=== PATIENT | female | born 1955 | race Caucasian/White ===

== ENCOUNTER 2019-05-31 23:26 | Emergency (ER) | payer MEDICARE, MEDICAID ==
[2019-05-31] MEDS ORDERED: Labetalol 100 MG/20 ML MDV IVPUSH ONE (23:40)
[2019-05-31] MEDS ORDERED: Labetalol 20 MG/4 ML Syringe ONE (23:43)
[2019-06-01] MEDS ORDERED: Sodium Chloride 0.9% 10 ML Syringe FLUSH ONE (00:28)
[2019-06-01] MEDS ORDERED: Iopamidol 755 Mg/ML 100 ML Bottle IV SCH (00:30)
[2019-06-01] MEDS ORDERED: Sodium Chloride 0.9% 100 ML IV SCH (00:30)
--- NOTE | 2019-06-01 00:33 | EDM.PDOC ---
ED HPI GENERAL MEDICAL PROBLEM - General Chief Complaint: Neuro Symptoms/Deficits Stated Complaint: POSSIBLE STROKE Time Seen by Provider: 05/31/19 23:30 Source of Information: Reports: Patient, Family History Limitations: Reports: No Limitations - History of Present Illness INITIAL COMMENTS - FREE TEXT/NARRATIVE: This is a 63-year-old female who presents with concerns of difficulty with speech. Her last known well was when she went to bed at 8 PM. She woke shortly before presentation and her noted that she was having difficulty getting her words formed. She was slow to form sentences and intermittently having difficulty expressing the correct word. She has never had behavior like this in the past. The patient endorses difficulty with speech as well. She denies any weakness. No vision changes. No headache. No prior history of stroke or CALKER disease. No cardiac disease. No recent surgeries or known bleeding disorders. She normally has quite articulate speech. - Related Data Allergies Allergy/AdvReac Type Severity Reaction Status Date / Time No Known Allergies Allergy Verified 05/31/19 23:59 Home Meds: Home Meds . 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: Musculoskeletal History: Reports: Fracture - Past Surgical History HEENT Surgical History: Reports: Eye Surgery Musculoskeletal Surgical History: Reports: Other (See Below) Other Musculoskeletal Surgeries/Procedures:: surgery for a broken knee Social & Family History - Tobacco Use Smoking Status *Q: Never Smoker - Caffeine Use Caffeine Use: Reports: Coffee, Soda - Recreational Drug Use Recreational Drug Use: No ED ROS GENERAL - Review of Systems Review Of Systems: See Below Constitutional: Reports: No Symptoms HEENT: Reports: No Symptoms Respiratory: Reports: No Symptoms Cardiovascular: Reports: No Symptoms Endocrine: Reports: No Symptoms GI/Abdominal: Reports: No Symptoms : Reports: No Symptoms Musculoskeletal: Reports: No Symptoms Skin: Reports: No Symptoms Neurological: Reports: Change in Speech Psychiatric: Reports: No Symptoms Hematologic/Lymphatic: Reports: No Symptoms Immunologic: Reports: No Symptoms ED EXAM, NEURO - Physical Exam Exam: See Below Exam Limited By: No Limitations General Appearance: Alert, No Apparent Distress Ears: Normal External Exam Nose: Normal Inspection Throat/Mouth: Normal Inspection Head Exam: Atraumatic, Normocephalic Neck: Normal Inspection Respiratory/Chest: Lungs Clear Cardiovascular: Regular Rate, Rhythm GI/Abdominal: Soft, Non-Tender Neurological: Alert, CN II-XII Intact, No Motor/Sensory Deficits, Other ( Cranial nerves II through XII intact. Has difficulty with naming objects, intermittently broken speech, is able to read smoothly. Follows complex commands. No neglect. No visual field deficits. No pronator drift. Finger-nose testing is intact. No lower extremity drift. Sensation to light touch is intact. ) Back Exam: Normal Inspection Extremities: Normal Inspection Psychiatric: Normal Affect Skin Exam: Warm, Dry Course - Vital Signs Last Recorded V/S: Last Vital Signs Temp 36.8 C 05/31/19 23:40 Pulse 62 06/01/19 00:00 Resp 16 06/01/19 00:00 BP 149/60 H 06/01/19 00:00 Pulse Ox 93 L 06/01/19 00:00 - Orders/Labs/Meds Orders: Active Orders 24 hr Category Date Time Status POC Glucose [Blood Glucose Check, Bedside] [RC] ONETIME Care 06/01/19 00:02 Active Ang Head [CT] Stat Exams 06/01/19 00:16 Ordered Ang Neck [CT] Stat Exams 06/01/19 00:16 Ordered Head wo Cont [CT] Stat Exams 05/31/19 23:39 Taken COMPREHENSIVE METABOLIC PN,CMP [CHEM] Stat Lab 06/01/19 00:05 Received Labs: Laboratory Tests 06/01/19 06/01/19 Range/Units 00:05 00:05 WBC 8.1 (4.5-11.0) K/uL RBC 4.75 (3.30-5.50) M/uL Hgb 13.1 (12.0-15.0) g/dL Hct 40.1 (36.0-48.0) % MCV 84 (80-98) fL MCH 28 (27-31) pg MCHC 33 (32-36) % Plt Count 293 (150-400) K/uL PT 10.6 (9.5-12.0) sec INR 0.98 (0.80-1.20) Meds: Medications Discontinued Medications Generic Name Dose Route Start Last Admin Trade Name Freq PRN Reason Stop Dose Admin Labetalol HCl 10 mg 05/31/19 23:40 05/31/19 23:40 Normodyne IVPUSH 05/31/19 23:41 10 mg ONETIME ONE Administration Protocol Labetalol HCl Confirm 05/31/19 23:43 05/31/19 23:50 Normodyne Administered 05/31/19 23:44 Not Given Dose 20 mg .ROUTE .STK-MED ONE - Re-Assessments/Exams Free Text/Narrative Re-Assessment/Exam: 63-year-old female with history of hypertension presents with concerns of speech difficulties found to have expressive aphasia. Initial presentation highly concerning for stroke. She was noted to be hypertensive on arrival with a systolic blood pressure of 191, this was treated with 10 mg of labetalol. On exam she is noted to have an expressive aphasia with non-complete inability to name objects. No other language deficits appreciated. No motor or sensory deficit. Blood glucose is normal. Emergent noncontrast head CT is unremarkable. I discussed this case with the neurologist in [place] and we agree that given her low NIH stroke scale score, which is currently 1, she would not be a candidate for TPA. She was accepted in transfer for further stroke cares through the emergency department in [facility]. Prior to transport it was felt that the patient was having increasing difficulty with language comprehension. We therefore are proceeding with a CT angiogram of the head and neck for any evidence of large vessel occlusion which may change the acuity of her management. 06/01/19 00:35 Departure - Departure Time of Disposition: 00:15 Disposition: DC/Tfer to Acute Hospital 02 Clinical Impression: Ischemic stroke - Discharge Information Referrals: Osmany Bermeo MD [Primary Care Provider] - Critical Care Note - Critical Care Note Total Time (mins): 34 Comments: Critical care time was spent evaluating for acute CVA, treating hypertension, interpretation of head CT, and discussing the case emergently with neurology consultants. - My Orders Last 24 Hours: My Active Orders 05/31/19 23:39 Head wo Cont [CT] Stat 06/01/19 00:02 POC Glucose [Blood Glucose Check, Bedside] [RC] ONETIME 06/01/19 00:05 COMPREHENSIVE METABOLIC PN,CMP [CHEM] Stat 06/01/19 00:16 Ang Head [CT] Stat Ang Neck [CT] Stat - Assessment/Plan Last 24 Hours: My Active Orders 05/31/19 23:39 Head wo Cont [CT] Stat 06/01/19 00:02 POC Glucose [Blood Glucose Check, Bedside] [RC] ONETIME 06/01/19 00:05 COMPREHENSIVE METABOLIC PN,CMP [CHEM] Stat 06/01/19 00:16 Ang Head [CT] Stat Ang Neck [CT] Stat
--- NOTE | 2019-06-01 01:44 | CRLCT ---
INDICATION: Word-finding difficulty. TECHNIQUE: After standard noncontrast head CT, high resolution axial CT images acquired through the head and neck following rapid intravenous administration of iodinated contrast. Multiplanar MIPS of cranial and cervical vasculature performed. COMPARISON: None. FINDINGS: Noncontrast head CT: There is no intracranial hemorrhage or fluid collection. The [place] oca-white matter differentiation is maintained. The ventricles are of normal morphology. The basal cisterns are clear. CTA head: There is normal filling of the intracranial vasculature; i.e. there is no large vessel occlusion or significant intracranial stenosis. There is no cerebral aneurysm or evidence for vascular malformation. CTA neck: Carotid arteries: There is atherosclerotic plaque. There is no significant stenosis by NASCET criteria. There is no evidence for dissection. Vertebral arteries: There is atherosclerotic plaque. There is no significant stenosis. There is no evidence for dissection. The soft tissues of the neck are within normal limits. The cervical spine is in normal alignment. Degenerative changes are noted in the cervical spine. The lung apices are clear. IMPRESSION: Unremarkable CT head, CTA head and neck. Jose Torres MD Neurointerventional Radiologist [employer] Please note that all CT scans at this facility use dose modulation, iterative reconstruction, and/or weight-based dosing when appropriate to reduce radiation dose to as low as reasonably achievable. Dictated by Jose Torres MD @ Jun 01 2019 6:47AM Signed by Dr. Jose Torres @ Jun 01 2019 6:50AM
--- NOTE | 2019-06-01 07:09 | CRLCT ---
Final Report: INDICATION: Aphasia for 4 hours TECHNIQUE: Head CT without contrast. COMPARISON: None. FINDINGS: CSF spaces: Within normal limits for age. Brain parenchyma: There are nonspecific low attenuation white matter changes consistent with chronic microvascular disease. No sign of mass, hemorrhage, or midline shift. Skull base and calvarium: The visualized paranasal sinuses and mastoid air cells demonstrate no acute or significant findings. The visualized orbits are grossly unremarkable. No skull fractures. There is intracranial atherosclerosis. IMPRESSION: 1. No acute findings. 2. Nonspecific white matter disease, typical of chronic microvascular disease. Please note that all CT scans at this facility use dose modulation, iterative reconstruction, and/or weight-based dosing when appropriate to reduce radiation dose to as low as reasonably achievable. Dictated by Taniya Ibrahim MD @ Jun 01 2019 12:15AM (Electronic Signature) MTDD
== END 2019-06-01 01:25 ==
LOC: JP.ED 23:26
DX: I63.9 Cerebral infarction, unspecified (principal); I10 Essential (primary) hypertension
CPT/HCPCS: 36415; 70450; 70496; 70498; 80053; 82962; 85027; 85610; 96374; 99285; J3490; J7030; Q9967; J7050

== ENCOUNTER 2019-06-29 04:03 | Emergency (ER) | payer MEDICARE, BC ==
[2019-06-29] MEDS ORDERED: Diltiazem 25 MG/5 ML SDV IVPUSH ONE ×2 (04:31→05:29)
--- NOTE | 2019-06-29 04:41 | EDM.PDOC ---
<Lars Booker - Last Filed: 06/29/19 06:29> ED HPI GENERAL MEDICAL PROBLEM - General Chief Complaint: Cardiovascular Problem Stated Complaint: HEART ISSUES Time Seen by Provider: 06/29/19 04:20 Source of Information: Reports: Patient, Family History Limitations: Reports: No Limitations - History of Present Illness INITIAL COMMENTS - FREE TEXT/NARRATIVE: 64-year-old female with intermittent atrial fibrillation, usually have episodes that resolve spontaneously was awoken with an irregular heartbeat and slight epigastric pressure at 2 AM. Since that time she has had persistent palpitations. No shortness of breath or pain. She had a stroke 1 month ago, and is now on Eliquis and metoprolol in addition to the Norvasc she was on prior to her stroke. She has not had any extra caffeine or alcohol. On arrival her rate is between 115 and 135. She has been in atrial fibrillation for 2-1/2 hours. Onset: Sudden Duration: Hour(s): (2-1/2 hours) Associated Symptoms: Reports: Other (Slight epigastric pressure and a sensation of palpitations) - Related Data Allergies Allergy/AdvReac Type Severity Reaction Status Date / Time No Known Allergies Allergy Verified 05/31/19 23:59 Home Meds: Home Meds Apixaban [Eliquis] 5 mg PO DAILY 06/29/19 [History] Metoprolol Tartrate [Lopressor] 12.5 mg PO Q12HR 06/29/19 [History] Multivitamin [Multi-Day Vitamins] 1 each PO DAILY 06/29/19 [History] amLODIPine [Norvasc] 5 mg PO DAILY 06/29/19 [History] atorvaSTATin [Lipitor] 40 mg PO DAILY 06/29/19 [History] Past Medical History HEENT History: Reports: Impaired Vision Cardiovascular History: Reports: Afib, High Cholesterol, Hypertension 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: Musculoskeletal History: Reports: Fracture Neurological History: Reports: CVA Other Neuro History: May 2019 cva - Past Surgical History HEENT Surgical History: Reports: Eye Surgery GI Surgical History: Reports: Hernia, Abdominal, Hernia Repair/Other Musculoskeletal Surgical History: Reports: Other (See Below) Other Musculoskeletal Surgeries/Procedures:: surgery for a broken knee Social & Family History - Tobacco Use Smoking Status *Q: Never Smoker - Caffeine Use Caffeine Use: Reports: None - Recreational Drug Use Recreational Drug Use: No ED ROS GENERAL - Review of Systems Review Of Systems: See Below Constitutional: Denies: Fever, Chills HEENT: Reports: No Symptoms Respiratory: Denies: Shortness of Breath Cardiovascular: Reports: Palpitations. Denies: Chest Pain GI/Abdominal: Reports: Other (Slight epigastric pressure). Denies: Nausea, Vomiting : Reports: No Symptoms Skin: Reports: No Symptoms Neurological: Reports: Other (Patient has some expressive aphasia from her previous stroke) Psychiatric: Reports: No Symptoms ED EXAM, GENERAL - Physical Exam Exam: See Below Exam Limited By: No Limitations General Appearance: Alert, No Apparent Distress Head: Atraumatic Neck: No: Carotid Bruit Respiratory/Chest: No Respiratory Distress, Lungs Clear Cardiovascular: No Murmur, Tachycardia, Irregularly Irregular GI/Abdominal: Non-Tender Extremities: Normal Inspection. No: Pedal Edema Neurological: Alert, Oriented Psychiatric: Normal Affect, Normal Mood Skin Exam: Warm, Dry EKG INTERPRETATION EKG Date: 06/29/19 Time: 04:10 Rhythm: A-Fib Rate (Beats/Min): 126 Course - Vital Signs Last Recorded V/S: Last Vital Signs Temp 36.2 C 06/29/19 04:41 Pulse 103 H 06/29/19 06:31 Resp 18 06/29/19 05:31 BP 111/60 06/29/19 06:31 Pulse Ox 95 06/29/19 05:31 - Orders/Labs/Meds Orders: Active Orders 24 hr Category Date Time Status EKG Documentation Completion [RC] ASDIRECTED Care 06/29/19 04:35 Active EKG 12 Lead [EK] Routine Ther 06/29/19 04:35 Ordered Labs: Laboratory Tests 06/29/19 06/29/19 06/29/19 Range/Units 04:42 04:42 04:42 WBC 8.7 (4.5-11.0) K/uL RBC 5.02 (3.30-5.50) M/uL Hgb 13.8 (12.0-15.0) g/dL Hct 41.9 (36.0-48.0) % MCV 84 (80-98) fL MCH 28 (27-31) pg MCHC 33 (32-36) % Plt Count 291 (150-400) K/uL Neut % (Auto) 59 (36-66) % Lymph % (Auto) 28 (24-44) % Spencer % (Auto) 9 H (2-6) % Eos % (Auto) 3 (2-4) % Baso % (Auto) 0 (0-1) % Sodium 139 L (140-148) mmol/L Potassium 3.8 (3.6-5.2) mmol/L Chloride 102 (100-108) mmol/L Carbon Dioxide 27 (21-32) mmol/L Anion Gap 13.8 (5.0-14.0) mmol/L BUN 14 (7-18) mg/dL Creatinine 0.6 (0.6-1.0) mg/dL Est Cr Clr Drug Dosing 80.72 mL/min Estimated GFR (MDRD) > 60 (>60) Glucose 124 H (74-106) mg/dL Calcium 8.8 (8.5-10.1) mg/dL Troponin I < 0.017 (0.000-0.056) ng/mL Meds: Medications Discontinued Medications Generic Name Dose Route Start Last Admin Trade Name Tonnyq PRN Reason Stop Dose Admin Diltiazem HCl 25 mg 06/29/19 04:31 06/29/19 04:38 Diltiazem IVPUSH 06/29/19 04:32 25 mg ONETIME ONE Administration Diltiazem HCl 20 mg 06/29/19 05:29 06/29/19 05:34 Diltiazem IVPUSH 06/29/19 05:30 20 mg ONETIME ONE Administration Propofol 50 mg 06/29/19 08:22 Diprivan 20 Ml IVPUSH 06/29/19 08:23 ONETIME ONE - Re-Assessments/Exams Free Text/Narrative Re-Assessment/Exam: 06/29/19 04:41 After the EKG confirmed atrial fibrillation at a rate of 126 to 135, an IV was started and CBC BMP and troponin was obtained. 25 mg of IV Cardizem will be given. 06/29/19 06:29 Within 5 to 10 minutes of 25 mg of Cardizem, good rate control was established in the 80s and 90s. After 45 minutes she started to speed up again and to the teens and low 20s, so an additional 20 mg IV was given. This offered excellent rate control in the 80s for an additional 2 hours but she did not convert to sinus rhythm. Labs were excellent, troponin was 0. If she does not convert by 7 AM, electrical cardioversion will be considered. Departure - Departure Disposition: Home, Self-Care 01 Clinical Impression: Atrial fibrillation with RVR Instructions: Atrial Fibrillation, [id number] Referrals: Osmany Bermeo MD [Primary Care Provider] - Forms: ED Department Discharge Additional Instructions: Continue your usual medications. F/U with your provider next week for recheck. Return to the ER if your heart starts beating fast again. No driving this morning. Sepsis Event Note - Evaluation Sepsis Screening Result: No Definite Risk - Focused Exam Vital Signs: Vital Signs Temp Pulse Resp BP Pulse Ox 06/29/19 06:31 103 H 111/60 06/29/19 06:12 70 95/46 L 06/29/19 05:56 97 100/56 L 06/29/19 05:31 121 H 18 124/61 95 06/29/19 05:11 92 18 111/63 96 06/29/19 04:51 95 111/64 06/29/19 04:41 36.2 C 135 H 19 134/72 06/29/19 04:20 140 H 19 146/79 H 96 Date Exam was Performed: 06/29/19 Time Exam was Performed: 06:29 <Calixto Peterson - Last Filed: 06/29/19 08:49> ED CARDIOLOGY PROCEDURES - Cardioversion Time of Cardioversion: 08:30 Indication: Atrial Fibrillation with RVR Patient Counseled: Yes Informed Consent Obtained: Yes Preparation: IV Access, Supplemental Oxygen, Other (2 physicians present) Pre-Procedure Sedation: Propofol (50 + 25 mg additional used for sedation. ) Cardioversion Energy: 200J Sync Mode: Biphasic Successful: Yes Number of Attempts: 1 Patient Condition Post Cardioversion: Improved Post Cardioversion EKG Reviewed: No (rhythm strip documented conversion to NSR in the 60's. ) Departure - Departure Time of Disposition: 09:00 Condition: Good Sepsis Event Note - Focused Exam Date Exam was Performed: 06/29/19 Time Exam was Performed: 08:49
[2019-06-29] MEDS ORDERED: Propofol 200 MG/20 ML SDV IVPUSH ONE (08:22)
--- NOTE | 2019-06-29 09:03 | PCM.PRNOTE ---
- Free Text/Narrative Note: Date of service: 06/29/2019 Proposed procedure: Synchronized cardioversion Preprocedure diagnosis: Paroxysmal atrial fibrillation with rapid ventricular response Post procedure diagnosis: Paroxysmal atrial fibrillation with rapid ventricular response Indication for procedure: Carol was evaluated today for management atrial fibrillation with symptoms and rapid ventricular response. Synchronized cardioversion was recommended as a primary treatment. Description of the procedure: Carol is currently located [facility]. We have reviewed the potential risks of electrical cardioversion including but not limited to: ineffective treatment, other arrhythmias, reaction to anesthesia medications or potentially asystole. The benefits of the procedure have also been reviewed. At this time the patient wishes to proceed with electrical cardioversion. All necessary pre-procedure information and paperwork has been provided and completed, respectively. The patient was connected to cardioversion pads and monitoring equipment per protocol. Prior to the procedure, a timeout was held with nursing and anesthesia present to confirm the right patient and right procedure. Once appropriate anesthesia was applied the machine was charged to 200 Joules and a synchronized electrical shock was applied. The patient was successfully converted to normal sinus rhythm based on telemetry monitoring. They will remain in their current location until anesthesia has dissipated and the patient is more awake and alert. They will then be discharged to home once medically stable. Anticoagulation should be continued for at least one month post cardioversion. There were no immediate complications noted from the procedure. Post procedure EKG is pending at the time of dictation. Taurus Casey M.D.
== END 2019-06-29 09:20 | disposition home or self-care (01) ==
LOC: JP.ED 04:03
DX: I48.91 Unspecified atrial fibrillation (principal); I10 Essential (primary) hypertension; Z79.899 Other long term (current) drug therapy; Z86.73 Personal history of transient ischemic attack (TIA), and cerebral infarction without residual deficits
CPT/HCPCS: 36415; 80048; 84484; 85025; 92960; 93005; 93010; 96374; 96376; 99285; J2704; J3490

== ENCOUNTER 2019-09-09 17:12 | Inpatient (IN) | payer MEDICARE, BC ==
[2019-09-09] MEDS ORDERED: Diltiazem 25 MG/5 ML SDV IVPUSH ONE ×2 (17:53→18:38)
--- NOTE | 2019-09-09 18:40 | EDM.PDOC ---
ED HPI GENERAL MEDICAL PROBLEM - General Chief Complaint: Cardiovascular Problem Stated Complaint: IRREGULAR HEARTBEAT, AFIB Time Seen by Provider: 09/09/19 18:00 Source of Information: Reports: Patient, Family History Limitations: Reports: No Limitations - History of Present Illness INITIAL COMMENTS - FREE TEXT/NARRATIVE: 64-year-old female who presents to the emergency room with atrial fibrillation with rapid ventricular response for the past 3 hours. She was seen for a similar episode 1 month ago and responded to cardioversion. She is on Eliquis. Has a history of a small thrombotic stroke 4 months ago, the first episode of diagnosed atrial fibrillation was 1 month ago in the emergency room. She has been asymptomatic since that time. She has an appointment tomorrow for "labs". Onset: Sudden Duration: Hour(s): (3 hours ago) Associated Symptoms: Reports: Shortness of Breath (Mild shortness of breath with her rapid rate) Chest Pain Score (Numeric/FACES): 2 - Related Data Allergies Allergy/AdvReac Type Severity Reaction Status Date / Time No Known Allergies Allergy Verified 09/09/19 21:04 Home Meds: Home Meds Apixaban [Eliquis] 5 mg PO BID 06/29/19 [History] Metoprolol Tartrate [Lopressor] 12.5 mg PO Q12HR 06/29/19 [History] Multivitamin [Multi-Day Vitamins] 1 each PO DAILY 06/29/19 [History] amLODIPine [Norvasc] 5 mg PO DAILY 06/29/19 [History] atorvaSTATin [Lipitor] 40 mg PO DAILY 06/29/19 [History] Aspirin [Halfprin] 81 mg PO DAILY 09/09/19 [History] Past Medical History HEENT History: Reports: Impaired Vision Cardiovascular History: Reports: Afib, High Cholesterol, Hypertension Other Cardiovascular History: cardioversion [employer]ANT History: Reports: Musculoskeletal History: Reports: Fracture Neurological History: Reports: CVA Other Neuro History: May 2019 cva - Infectious Disease History Infectious Disease History: Reports: Chicken Pox, Measles, Mumps - Past Surgical History HEENT Surgical History: Reports: Eye Surgery GI Surgical History: Reports: Hernia, Abdominal, Hernia Repair/Other Musculoskeletal Surgical History: Reports: Other (See Below) Other Musculoskeletal Surgeries/Procedures:: surgery for a broken knee Social & Family History - Tobacco Use Smoking Status *Q: Never Smoker - Caffeine Use Caffeine Use: Reports: None, Tea - Recreational Drug Use Recreational Drug Use: No ED ROS GENERAL - Review of Systems Review Of Systems: See Below Constitutional: Denies: Fever, Chills HEENT: Reports: No Symptoms Respiratory: Reports: Shortness of Breath (Since the start of her palpitations) Cardiovascular: Denies: Chest Pain GI/Abdominal: Denies: Abdominal Pain, Nausea, Vomiting Skin: Reports: No Symptoms Neurological: Denies: Dizziness, Headache Psychiatric: Reports: No Symptoms ED EXAM, GENERAL - Physical Exam Exam: See Below Exam Limited By: No Limitations General Appearance: Alert, No Apparent Distress Head: Atraumatic Respiratory/Chest: No Respiratory Distress, Lungs Clear Cardiovascular: Tachycardia, Irregularly Irregular GI/Abdominal: Soft, Non-Tender Extremities: Normal Inspection. No: Pedal Edema Neurological: Alert, Oriented Psychiatric: Normal Affect, Normal Mood EKG INTERPRETATION Rhythm: A-Fib Rate (Beats/Min): 148 Course - Vital Signs Last Recorded V/S: Last Vital Signs Temp 97.7 F 09/09/19 22:00 Pulse 118 H 09/09/19 22:00 Resp 18 09/09/19 22:00 BP 129/62 09/09/19 22:00 Pulse Ox 97 09/09/19 22:00 - Orders/Labs/Meds Orders: Active Orders 24 hr Category Date Time Status EKG Documentation Completion [RC] ASDIRECTED Care 09/09/19 18:50 Active Diltiazem [Cardizem] 100 mg Med 09/09/19 19:45 Active Sodium Chloride 0.9% [Normal Saline] 100 ml IV TITRATE EKG 12 Lead [EK] Routine Ther 09/09/19 18:50 Stop Req Medication Orders Acetaminophen (Tylenol) 650 mg PO Q4H PRN PRN Reason: Pain (Mild 1-3)/fever Apixaban (Eliquis) 5 mg PO BID SANTOSH Last Admin: 09/09/19 21:31 Dose: 5 mg Aspirin (Halfprin) 81 mg PO DAILY SANTOSH Atorvastatin Calcium (Lipitor) 40 mg PO DAILY SANTOS[facility] Diltiazem HCl 100 mg/ Sodium (Chloride) 100 mls @ 5 mls/hr IV TITRATE SANTOSH; Protocol Last Titration: 09/09/19 21:36 Dose: 10 mg/hr, 10 mls/hr Admin: 09/09/19 19:44 Dose: 5 mg/hr, 5 mls/hr Sodium Chloride (Normal Saline) 1,000 mls @ 50 mls/hr IV ASDIRECTED [facility] Lorazepam (Ativan) 0.5 mg IVPUSH Q4H PRN PRN Reason: Nausea/Vomiting Magnesium Hydroxide (Milk Of Magnesia) 30 ml PO Q12H PRN PRN Reason: Constipation Melatonin (Melatonin) 9 mg PO BEDTIME PRN PRN Reason: Sleep Metoprolol Tartrate (Lopressor) 25 mg PO BID [facility] Last Admin: 09/09/19 21:31 Dose: 25 mg Ondansetron HCl (Zofran Odt) 4 mg PO Q6H PRN PRN Reason: Nausea able to take PO Ondansetron HCl (Zofran) 4 mg IV Q6H PRN PRN Reason: Nausea/Vomiting Senna/Docusate Sodium (Senna Plus) 1 tab PO BID PRN PRN Reason: Constipation Meds: Medications Generic Name Dose Route Start Last Admin Trade Name Freq PRN Reason Stop Dose Admin Acetaminophen 650 mg 09/09/19 20:36 Tylenol PO Q4H PRN Pain (Mild 1-3)/fever Apixaban 5 mg 09/09/19 21:00 09/09/19 21:31 Eliquis PO 5 mg BID [facility] Administration Aspirin 81 mg 09/10/19 09:00 Halfprin PO DAILY [facility] Atorvastatin Calcium 40 mg 09/10/19 09:00 Lipitor PO DAILY [facility] Diltiazem HCl 100 mg/ Sodium 100 mls @ 5 mls/hr 09/09/19 19:45 09/09/19 21:36 Chloride IV 10 mg/hr TITRATE SANTOSH 10 mls/hr Titration Protocol 5 MG/HR Sodium Chloride 1,000 mls @ 50 mls/hr 09/09/19 20:36 Normal Saline IV ASDIRECTED [facility] Lorazepam 0.5 mg 09/09/19 20:36 Ativan IVPUSH Q4H PRN Nausea/Vomiting Magnesium Hydroxide 30 ml 09/09/19 20:36 Milk Of Magnesia PO Q12H PRN Constipation Melatonin 9 mg 09/09/19 20:36 Melatonin PO BEDTIME PRN Sleep Metoprolol Tartrate 25 mg 09/09/19 21:00 09/09/19 21:31 Lopressor PO 25 mg BID [facility] Administration Ondansetron HCl 4 mg 09/09/19 20:36 Zofran Odt PO Q6H PRN Nausea able to take PO Ondansetron HCl 4 mg 09/09/19 20:36 Zofran IV Q6H PRN Nausea/Vomiting Senna/Docusate Sodium 1 tab 09/09/19 20:36 Senna Plus PO BID PRN Constipation Discontinued Medications Generic Name Dose Route Start Last Admin Trade Name Freq PRN Reason Stop Dose Admin Diltiazem HCl 20 mg 09/09/19 17:53 09/09/19 17:59 Diltiazem IVPUSH 09/09/19 17:54 20 mg ONETIME ONE Administration Diltiazem HCl 20 mg 09/09/19 18:38 09/09/19 18:43 Diltiazem IVPUSH 09/09/19 18:39 20 mg ONETIME ONE Administration Sodium Chloride 1,000 mls @ 999 mls/hr 09/09/19 20:36 09/09/19 21:30 Normal Saline IV 09/09/19 21:36 999 mls/hr .BOLUS ONE Administration Propofol 100 mg 09/09/19 19:11 09/09/19 19:46 Diprivan 20 Ml IVPUSH 09/09/19 19:12 100 mg ONETIME ONE Administration - Re-Assessments/Exams Free Text/Narrative Re-Assessment/Exam: 09/09/19 18:39 Cardiac monitoring and EKG confirmed atrial fibrillation with rapid ventricular response. Patient was given 20 mg of IV Cardizem, this will be repeated in 1/2- hour if she does not spontaneously convert. After 1 hour will be 4 hours post food ingestion, if she does not spontaneously convert elective cardioversion will be attempted. She has responded well to this in the past. 09/09/19 19:10 Patient had good rate control for 30 minutes but then started to have rapid ventricular response to the fibrillation again. A second 20 mg IV dose of Cardizem was given and after 25 minutes the decision was made to electively cardiovert. Consent was obtained, risks were discussed with the patient. Procedure will be assisted by Dr. Casey of the hospitalist service. 09/09/19 19:36 Patient was electively cardioverted with synchronized 200 J and converted to sinus rhythm for less than 1 minute. She then went back into atrial fibrillation with rapid ventricular response. A second cardioversion was unsuccessful. It was elected at that time to start a Cardizem drip and admit to the patient for rate control. CBC CMP magnesium and TSH were drawn. Departure - Departure Time of Disposition: 20:18 Disposition: Admitted As Inpatient 65 Clinical Impression: Atrial fibrillation with RVR Sepsis Event Note - Evaluation Sepsis Screening Result: No Definite Risk - Focused Exam Vital Signs: Vital Signs Temp Pulse Resp BP Pulse Ox 09/09/19 18:05 98 15 113/72 95 09/09/19 17:34 97.6 F 148 H 18 146/80 H 96 Date Exam was Performed: 09/09/19 Time Exam was Performed: 23:02 - My Orders Last 24 Hours: My Active Orders 09/09/19 18:50 EKG Documentation Completion [RC] ASDIRECTED EKG 12 Lead [EK] Routine 09/09/19 19:45 Diltiazem [Cardizem] 100 mg Sodium Chloride 0.9% [Normal Saline] 100 ml IV TITRATE - Assessment/Plan Last 24 Hours: My Active Orders 09/09/19 18:50 EKG Documentation Completion [RC] ASDIRECTED EKG 12 Lead [EK] Routine 09/09/19 19:45 Diltiazem [Cardizem] 100 mg Sodium Chloride 0.9% [Normal Saline] 100 ml IV TITRATE
[2019-09-09] MEDS ORDERED: Propofol 200 MG/20 ML SDV IVPUSH ONE (19:11)
--- NOTE | 2019-09-09 19:38 | PCM.PRNOTE ---
- Free Text/Narrative Note: Date of service: 09/09/19 Proposed procedure: Synchronized cardioversion Preprocedure diagnosis: Paroxysmal atrial fibrillation with rapid ventricular response Post procedure diagnosis: Paroxysmal atrial fibrillation with rapid ventricular response Indication for procedure: Carol was evaluated today for management atrial fibrillation with symptoms and rapid ventricular response. Synchronized cardioversion was recommended as a primary treatment. Description of the procedure: Carol is currently located in [place] [id number]. We have reviewed the potential risks of electrical cardioversion including but not limited to: Superficial skin watkins, ineffective treatment, other arrhythmias, reaction to anesthesia medications or potentially asystole. The benefits of the procedure have also been reviewed. At this time the patient wishes to proceed with electrical cardioversion. All necessary pre-procedure information and paperwork has been provided and completed, respectively. The patient was connected to cardioversion pads and monitoring equipment per protocol. Prior to the procedure, a timeout was held with nursing and anesthesia present to confirm the right patient and right procedure. Once appropriate anesthesia was applied the machine was charged to 200 Joules and a synchronized electrical shock was applied. The patient was successfully converted to normal sinus rhythm based on telemetry monitoring but shortly thereafter returned to atrial fibrillation with a rapid ventricular response. We did try a second shock which did not convert to sinus rhythm. The cardioversion was completed at this time. The plan is for the patient to be managed medically in the intensive care unit. They will remain in their current location until anesthesia has dissipated and the patient is more awake and alert. There were no immediate complications noted from the procedure. Taurus Casey M.D.
[2019-09-09] MEDS: Diltiazem 100 MG in Sodium Chloride 0.9% 100 ML IV SCH (19:44)
--- NOTE | 2019-09-09 20:15 | PCM.HP.2 ---
H&P History of Present Illness - General Date of Service: 09/09/19 Admit Problem/Dx: Admission Diagnosis/Problem Admission Diagnosis/Problem Atrial fibrillation with rapid ventricular response Source of Information: Patient, Provider History Limitations: Reports: No Limitations - History of Present Illness Initial Comments - Free Text/Narative: CC: I felt off HPI: Carol presents to the emergency room today with palpitations and the sensation that she is "off". She was feeling well until around 3 PM today. She was at a birthday democrat and suddenly felt palpitations. She did note that she felt a little off but cannot further describe it prior to the birthday democrat. She had some dizziness/wooziness. She had a mild headache and felt a little anxious. She did not ever have any chest pain and she did not feel short of breath. Once the palpitations started she knew that she was back in atrial fibrillation. She has felt well recently though she does report occasional palpitations but they only last for a few seconds. Functional status has not changed. She has been trying to lose weight and has been successful. No nausea or abdominal pain. No change in bowel or bladder habits. No fevers. No sick contacts. No travel. No calf pain. No new medications. In the emergency room she was noted to be in atrial fibrillation with a rapid ventricular response. Her heart rate did slow down with the diltiazem but she did not convert. We did attempt a cardioversion which was successful but only for a few seconds before she returned atrial fibrillation. A second attempt at cardioversion was unsuccessful. The plan is for the patient to be admitted for medical management of atrial fibrillation. Chest Pain Score (Numeric/FACES): 2 - Related Data Allergies/Adverse Reactions: Allergies Allergy/AdvReac Type Severity Reaction Status Date / Time No Known Allergies Allergy Verified 09/09/19 21:04 Home Medications: Home Meds Apixaban [Eliquis] 5 mg PO BID 06/29/19 [History] Metoprolol Tartrate [Lopressor] 12.5 mg PO Q12HR 06/29/19 [History] Multivitamin [Multi-Day Vitamins] 1 each PO DAILY 06/29/19 [History] amLODIPine [Norvasc] 5 mg PO DAILY 06/29/19 [History] atorvaSTATin [Lipitor] 40 mg PO DAILY 06/29/19 [History] Aspirin [Halfprin] 81 mg PO DAILY 09/09/19 [History] Past Medical History HEENT History: Reports: Impaired Vision Cardiovascular History: Reports: Afib, High Cholesterol, Hypertension 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: Reports: Musculoskeletal History: Reports: Fracture Neurological History: Reports: CVA Other Neuro History: May 2019 cva - Infectious Disease History Infectious Disease History: Reports: Chicken Pox, Measles, Mumps - Past Surgical History HEENT Surgical History: Reports: Eye Surgery GI Surgical History: Reports: Hernia, Abdominal, Hernia Repair/Other Musculoskeletal Surgical History: Reports: Other (See Below) Other Musculoskeletal Surgeries/Procedures:: surgery for a broken knee Social & Family History - Family History Cardiac: Denies: CAD - Tobacco Use Smoking Status *Q: Never Smoker - Caffeine Use Caffeine Use: Reports: None, Tea - Recreational Drug Use Recreational Drug Use: No H&P Review of Systems - Review of Systems: Review Of Systems: See Below Free Text/Narrative: A complete 12 point review of systems was obtained. Pertinent positives and negatives are noted in the history of present illness. All other systems were reviewed and were negative except as noted. Exam - Exam Exam: See Below - Vital Signs Vital Signs: Last Vital Signs Temp 36.4 C 09/09/19 17:34 Pulse 98 09/09/19 18:05 Resp 15 09/09/19 18:05 BP 113/72 09/09/19 18:05 Pulse Ox 95 09/09/19 18:05 Weight: 94.801 kg - Exam Quality Assessment: Supplemental Oxygen General: Alert, Oriented, Cooperative. No: Mild Distress HEENT: Conjunctiva Clear, Mucosa Moist & [place]. No: Scleral Icterus Neck: Supple, Trachea Midline Lungs: Clear to Auscultation, Normal Respiratory Effort Cardiovascular: Irregular Rhythm, Tachycardia. No: Systolic Murmur GI/Abdominal Exam: Normal Bowel Sounds, Soft, Non-Tender, No Distention Extremities: No Pedal Edema. No: Increased Warmth Peripheral Pulses: 2+: Dorsalis Pedis (L), Dorsalis Pedis (R) Skin: Warm, Dry Neuro Extensive - Mental Status: Alert, Oriented x3, Nl Response to Commands Neuro Extensive - Motor, Sensory, Reflexes: No: Dysarthria, Abnormal Motor, Tremor Psychiatric: Alert, Normal Affect - Patient Data Lab Results Last 24 hrs: Laboratory Results - last 24 hr 09/09/19 Range/Units 19:47 WBC 8.6 (4.5-11.0) K/uL RBC 4.80 (3.30-5.50) M/uL Hgb 13.3 (12.0-15.0) g/dL Hct 40.6 (36.0-48.0) % MCV 85 (80-98) fL MCH 28 (27-31) pg MCHC 33 (32-36) % Plt Count 284 (150-400) K/uL Neut % (Auto) 51 (36-66) % Lymph % (Auto) 34 (24-44) % [place] % (Auto) 10 H (2-6) % Eos % (Auto) 5 H (2-4) % Baso % (Auto) 1 (0-1) % Result Diagrams: 09/09/19 19:47 09/09/19 19:47 EKG INTERPRETATION EKG Date: 09/09/19 Rhythm: A-Fib Rate (Beats/Min): 150 [place]: Normal P-Wave: Variable QRS: Normal ST-T: Normal QT: Normal EKG Interpretation Comments: This EKG image was personally reviewed Sepsis Event Note - Evaluation Sepsis Screening Result: No Definite Risk - Focused Exam Vital Signs: Vital Signs Temp Pulse Resp BP Pulse Ox 09/09/19 18:05 98 15 113/72 95 09/09/19 17:34 36.4 C 148 H 18 146/80 H 96 Date Exam was Performed: 09/09/19 Time Exam was Performed: 23:38 *Q Meaningful Use (ADM) - VTE Risk Assess *Q Each Risk Factor Represents 1 Point: Obesity ( BMI > 25 kg/m2) Total Score 1 Point Risk Factors: 1 Each Risk Factor Represents 2 Points: Age 60 - 74 Years Total Score 2 Point Risk Factors: 2 Each Risk Factor Represents 3 Points: None Total Score 3 Point Risk Factors: 0 Each Risk Factor Represents 5 Points: None Total Score 5 Point Risk Factors: 0 Venous Thromboembolism Risk Factor Score *Q: 3 - Problem List (1) Atrial fibrillation with RVR SNOMED Code(s): 790633040920936 ICD Code: I48.91 - UNSPECIFIED ATRIAL FIBRILLATION Status: Acute Current Visit: Yes (2) Ischemic stroke SNOMED Code(s): 301658171 ICD Code: I63.9 - CEREBRAL INFARCTION, UNSPECIFIED Status: Chronic Current Visit: No Problem List Initiated/Reviewed/Updated: Yes Orders Last 24hrs: Active Orders 24 hr Category Date Time Status Patient Status Manage Transfer [TRANSFER] Routine ADT 09/09/19 19:39 Active EKG Documentation Completion [RC] ASDIRECTED Care 09/09/19 18:50 Active COMPREHENSIVE METABOLIC PN,CMP [CHEM] Stat Lab 09/09/19 19:47 Received MAGNESIUM [CHEM] Stat Lab 09/09/19 19:47 Received TSH ULTRASENSITIVE [CHEM] Stat Lab 09/09/19 19:47 Received Diltiazem [Cardizem] 100 mg Med 09/09/19 19:45 Active Sodium Chloride 0.9% [Normal Saline] 100 ml IV TITRATE Resuscitation Status Routine Resus Stat 09/09/19 19:40 Ordered EKG 12 Lead [EK] Routine Ther 09/09/19 18:50 Ordered Medication Orders Diltiazem HCl 100 mg/ Sodium (Chloride) 100 mls @ 5 mls/hr IV TITRATE SANTOSH; Protocol Last Admin: 09/09/19 19:44 Dose: 5 mg/hr, 5 mls/hr Assessment/Plan Comment:: ASSESSMENT AND PLAN - Atrial fibrillation with a rapid ventricular response-cardioversion was unsuccessful. Exact reason for the episode of atrial fibrillation is not entirely clear. Electrolytes are still pending. No reason to suspect infection at this time. She did have a good response with her rate to the diltiazem and an infusion has been started in the emergency room. She is chronically anticoagulated. -Continue diltiazem infusion, titrate as needed -Increase metoprolol dosing to 25 mg twice daily, consider transition to extended release if dosing stable -IV fluid bolus for adequate blood pressure with the diltiazem infusion -Cardiac monitoring -Optimize electrolytes as indicated -continue apixaban History of an ischemic stroke-she is due for follow-up labs but otherwise is stable with no residual deficits. Maintenance issues - - DVT prophylaxis -apixaban - GI prophylaxis - not indicated - Nutrition -regular - Harrison catheter -not indicated CODE STATUS -full code Admission justification -this patient will be admitted for inpatient services and is medically appropriate meeting medical necessity for inpatient admission as outlined in my documentation. I reasonably expect the patient will require inpatient services that span a period time over 2 midnights. I reasonably expect this patient to be discharged or transferred within 96 hours [facility]. Disposition -I would anticipate discharge home after the hospital stay Primary care physician -Dr Christopher Casey M.D. - Mortality Measure Prognosis:: Good
[2019-09-09] MEDS ORDERED: Ondansetron 4 MG Tab.DIS PO PRN (20:36)
[2019-09-09] MEDS ORDERED: Sodium Chloride 0.9% 1,000 ML IV ONE (20:36)
[2019-09-09] MEDS ORDERED: LORazepam 2 MG/ML SDV IVPUSH PRN (20:36)
[2019-09-09] MEDS ORDERED: Melatonin 3 MG Tab PO PRN (20:36)
[2019-09-09] MEDS ORDERED: Acetaminophen 325 MG Tab PO PRN (20:36)
[2019-09-09] MEDS ORDERED: Sodium Chloride 0.9% 1,000 ML IV SCH (20:36)
[2019-09-09] MEDS ORDERED: Ondansetron 4 MG/2 ML SDV IV PRN (20:36)
[2019-09-09] MEDS ORDERED: Magnesium Hydroxide 400 MG/5 ML Susp 30 ML Cup PO PRN (20:36)
[2019-09-09] MEDS: Apixaban 5 MG Tab PO SCH (21:31)
[2019-09-09] MEDS: Metoprolol Tartrate 25 MG Tab PO SCH (21:31)
[2019-09-10] MEDS: Diltiazem 100 MG in Sodium Chloride 0.9% 100 ML IV SCH (05:40)
[2019-09-10] MEDS: Apixaban 5 MG Tab PO SCH ×2 (09:09→20:37)
[2019-09-10] MEDS: atorvaSTATin 20 MG Tab PO SCH (09:09)
[2019-09-10] MEDS: Aspirin 81 MG Tab.EC PO SCH (09:09)
[2019-09-10] MEDS: Metoprolol Tartrate 25 MG Tab PO SCH ×2 (09:09→20:37)
--- NOTE | 2019-09-10 10:02 | PCM.PN ---
- General Info Date of Service: 09/10/19 Subjective Update: Ms. Patterson 64-year-old woman who was admitted through the emergency department last night by Dr. Casey with atrial fibrillation and rapid ventricular response. Attempts at cardioversion in the emergency department were unsuccessful. She is received IV diltiazem through the night resulting in good rate control. She is already on anticoagulation with Eliquis. Functional Status: Reports: Tolerating Diet, Urinating - Review of Systems General: Reports: No Symptoms Pulmonary: Reports: No Symptoms Cardiovascular: Reports: No Symptoms Gastrointestinal: Reports: No Symptoms - Patient Data Vitals - Most Recent: Last Vital Signs Temp 96.8 F L 09/10/19 09:00 Pulse 68 09/10/19 09:09 Resp 20 09/10/19 09:00 BP 114/66 09/10/19 09:09 Pulse Ox 95 09/10/19 09:00 Weight - Most Recent: 209 lb Lab Results Last 24 Hours: Laboratory Results - last 24 hr 09/09/19 09/09/19 09/09/19 Range/Units 19:47 19:47 19:47 WBC 8.6 (4.5-11.0) K/uL RBC 4.80 (3.30-5.50) M/uL Hgb 13.3 (12.0-15.0) g/dL Hct 40.6 (36.0-48.0) % MCV 85 (80-98) fL MCH 28 (27-31) pg MCHC 33 (32-36) % Plt Count 284 (150-400) K/uL Neut % (Auto) 51 (36-66) % Lymph % (Auto) 34 (24-44) % Alfalfa % (Auto) 10 H (2-6) % Eos % (Auto) 5 H (2-4) % Baso % (Auto) 1 (0-1) % Sodium 142 (140-148) mmol/L Potassium 3.8 (3.6-5.2) mmol/L Chloride 105 (100-108) mmol/L Carbon Dioxide 28 (21-32) mmol/L Anion Gap 9.0 (5.0-14.0) mmol/L BUN 14 (7-18) mg/dL Creatinine 0.6 (0.6-1.0) mg/dL Est Cr Clr Drug Dosing 83.27 mL/min Estimated GFR (MDRD) > 60 (>60) Glucose 106 (74-106) mg/dL Calcium 9.0 (8.5-10.1) mg/dL Magnesium 2.2 (1.8-2.4) mg/dL Total Bilirubin 0.4 (0.2-1.0) mg/dL AST 32 (15-37) U/L ALT 46 D (12-78) U/L Alkaline Phosphatase 137 H (46-116) U/L Total Protein 7.4 (6.4-8.2) g/dL Albumin 3.3 L (3.4-5.0) g/dL Globulin 4.1 H (2.3-3.5) g/dL Albumin/Globulin Ratio 0.8 L (1.2-2.2) Triglycerides (15-150) mg/dL Cholesterol (0-200) mg/dL LDL Cholesterol Direct (0-100) mg/dL HDL Cholesterol (40-60) mg/dL Free T4 (0.76-1.46) ng/dL TSH, Ultra Sensitive 7.972 H (0.358-3.740) uIU/mL 09/09/19 09/10/19 Range/Units 20:31 05:12 WBC (4.5-11.0) K/uL RBC (3.30-5.50) M/uL Hgb (12.0-15.0) g/dL Hct (36.0-48.0) % MCV (80-98) fL MCH (27-31) pg MCHC (32-36) % Plt Count (150-400) K/uL Neut % (Auto) (36-66) % Lymph % (Auto) (24-44) % Alfalfa % (Auto) (2-6) % Eos % (Auto) (2-4) % Baso % (Auto) (0-1) % Sodium (140-148) mmol/L Potassium (3.6-5.2) mmol/L Chloride (100-108) mmol/L Carbon Dioxide (21-32) mmol/L Anion Gap (5.0-14.0) mmol/L BUN (7-18) mg/dL Creatinine (0.6-1.0) mg/dL Est Cr Clr Drug Dosing mL/min Estimated GFR (MDRD) (>60) Glucose (74-106) mg/dL Calcium (8.5-10.1) mg/dL Magnesium (1.8-2.4) mg/dL Total Bilirubin (0.2-1.0) mg/dL AST (15-37) U/L ALT (12-78) U/L Alkaline Phosphatase (46-116) U/L Total Protein (6.4-8.2) g/dL Albumin (3.4-5.0) g/dL Globulin (2.3-3.5) g/dL Albumin/Globulin Ratio (1.2-2.2) Triglycerides 142 (15-150) mg/dL Cholesterol 129 (0-200) mg/dL LDL Cholesterol Direct 74 (0-100) mg/dL HDL Cholesterol 32 L (40-60) mg/dL Free T4 0.97 (0.76-1.46) ng/dL TSH, Ultra Sensitive (0.358-3.740) uIU/mL Med Orders - Current: Current Medications Acetaminophen (Tylenol) 650 mg PO Q4H PRN PRN Reason: Pain (Mild 1-3)/fever Apixaban (Eliquis) 5 mg PO BID [facility] Last Admin: 09/10/19 09:09 Dose: 5 mg Aspirin (Halfprin) 81 mg PO DAILY [facility] Last Admin: 09/10/19 09:09 Dose: 81 mg Atorvastatin Calcium (Lipitor) 40 mg PO DAILY [facility] Last Admin: 09/10/19 09:09 Dose: 40 mg Diltiazem HCl (Cardizem Cd) 240 mg PO DAILY [facility] Lorazepam (Ativan) 0.5 mg IVPUSH Q4H PRN PRN Reason: Nausea/Vomiting Magnesium Hydroxide (Milk Of Magnesia) 30 ml PO Q12H PRN PRN Reason: Constipation Melatonin (Melatonin) 9 mg PO BEDTIME PRN PRN Reason: Sleep Metoprolol Tartrate (Lopressor) 25 mg PO BID [facility] Last Admin: 09/10/19 09:09 Dose: 25 mg Ondansetron HCl (Zofran Odt) 4 mg PO Q6H PRN PRN Reason: Nausea able to take PO Ondansetron HCl (Zofran) 4 mg IV Q6H PRN PRN Reason: Nausea/Vomiting Senna/Docusate Sodium (Senna Plus) 1 tab PO BID PRN PRN Reason: Constipation Discontinued Medications Diltiazem HCl (Diltiazem) 20 mg IVPUSH ONETIME ONE Stop: 09/09/19 17:54 Last Admin: 09/09/19 17:59 Dose: 20 mg Diltiazem HCl (Diltiazem) 20 mg IVPUSH ONETIME ONE Stop: 09/09/19 18:39 Last Admin: 09/09/19 18:43 Dose: 20 mg Diltiazem HCl 100 mg/ Sodium (Chloride) 100 mls @ 5 mls/hr IV TITRATE [facility]; Protocol Last Admin: 09/10/19 05:40 Dose: 10 mg/hr, 10 mls/hr Sodium Chloride (Normal Saline) 1,000 mls @ 50 mls/hr IV ASDIRECTED [facility] Last Admin: 09/10/19 03:00 Dose: 50 mls/hr Sodium Chloride (Normal Saline) 1,000 mls @ 999 mls/hr IV .BOLUS ONE Stop: 09/09/19 21:36 Last Admin: 09/09/19 21:30 Dose: 999 mls/hr Propofol (Diprivan 20 Ml) 100 mg IVPUSH ONETIME ONE Stop: 09/09/19 19:12 Last Admin: 09/09/19 19:46 Dose: 100 mg - Exam Quality Assessment: DVT Prophylaxis General: Alert, Oriented, Cooperative, No Acute Distress Lungs: Clear to Auscultation, Normal Respiratory Effort Cardiovascular: Regular Rate, No Murmurs, Irregular Rhythm GI/Abdominal Exam: Soft, Non-Tender, No Organomegaly, No Distention Extremities: Non-Tender, No Pedal Edema Sepsis Event Note - Evaluation Sepsis Screening Result: No Definite Risk - Focused Exam Vital Signs: Vital Signs Temp Temp Pulse Pulse Resp BP BP 09/10/19 09:09 68 114/66 09/10/19 09:00 96.8 F L 83 20 114/66 09/10/19 08:00 96.8 F L 81 15 105/60 09/10/19 07:00 79 19 108/55 L 09/10/19 06:00 83 16 112/69 09/10/19 05:00 87 17 100/53 L 09/10/19 04:00 78 16 105/50 L 09/10/19 03:04 75 17 108/55 L 09/10/19 02:01 74 19 116/65 09/10/19 01:00 97.5 F 76 20 99/53 L 09/10/19 00:03 83 19 108/51 L 09/09/19 23:00 93 17 109/52 L 09/09/19 22:00 97.7 F 118 H 18 129/62 Pulse Ox 09/10/19 09:09 09/10/19 09:00 95 09/10/19 08:00 94 L 09/10/19 07:00 92 L 09/10/19 06:00 95 09/10/19 05:00 96 09/10/19 04:00 97 09/10/19 03:04 92 L 09/10/19 02:01 93 L 09/10/19 01:00 93 L 09/10/19 00:03 91 L 09/09/19 23:00 95 09/09/19 22:00 97 Date Exam was Performed: 09/10/19 Time Exam was Performed: 09:59 - Problem List Review Problem List Initiated/Reviewed/Updated: Yes - My Orders Last 24 Hours: My Active Orders 09/10/19 09:57 Convert IV to Saline Lock [OM.PC] Routine 09/10/19 10:00 Diltiazem [Cardizem CD] 240 mg PO DAILY - Plan Plan:: ASSESSMENT AND PLAN - Atrial fibrillation with a rapid ventricular response-cardioversion was unsuccessful. Exact reason for the episode of atrial fibrillation is not entirely clear. Good rate control through the night with use of IV diltiazem -Discontinue IV diltiazem -Diltiazem CD 240 mg p.o. daily -Increase metoprolol dosing to 25 mg twice daily, consider transition to extended release if dosing stable -Saline lock IV -Cardiac monitoring -continue apixaban History of an ischemic stroke-she is due for follow-up labs but otherwise is stable with no residual deficits. Maintenance issues - - DVT prophylaxis -apixaban - GI prophylaxis - not indicated - Nutrition -regular - Harrison catheter -not indicated CODE STATUS -full code Admission justification -this patient will be admitted for inpatient services and is medically appropriate meeting medical necessity for inpatient admission as outlined in my documentation. I reasonably expect the patient will require inpatient services that span a period time over 2 midnights. I reasonably expect this patient to be discharged or transferred within 96 hours [facility] Disposition -I would anticipate discharge home after the hospital stay Primary care physician -Dr Christopher Bermeo
[2019-09-10] MEDS: Diltiazem 120 MG Cap.CD PO SCH (10:07)
[2019-09-11] MEDS: Aspirin 81 MG Tab.EC PO SCH (08:10)
[2019-09-11] MEDS: Metoprolol Tartrate 25 MG Tab PO SCH (08:10)
[2019-09-11] MEDS: Diltiazem 120 MG Cap.CD PO SCH (08:10)
[2019-09-11] MEDS: atorvaSTATin 20 MG Tab PO SCH (08:11)
[2019-09-11] MEDS: Apixaban 5 MG Tab PO SCH (08:11)
--- NOTE | 2019-09-11 10:24 | PCM.DCSUM1 ---
Discharge Summary - Hospital Course Brief History: Ms. Patterson is a 64-year-old woman who was admitted through the emergency room with palpitations and weakness secondary to atrial fibrillation with rapid ventricular response. - Discharge Data Discharge Date: 09/11/19 Discharge Disposition: Home, Self-Care 01 Condition: Stable - Referral to Home Health Primary Care Physician: PCP None - Discharge Diagnosis/Problem(s) (1) Atrial fibrillation with RVR SNOMED Code(s): 619201658442787 ICD Code: I48.91 - UNSPECIFIED ATRIAL FIBRILLATION Status: Acute - Patient Summary/Data Hospital Course: Ms. Patterson presented to the emergency room with palpitations and the sensation that she is "off". She was feeling well until around 3 PM. She was at a birthday libertarian and suddenly felt palpitations. She did note that she felt a little off but cannot further describe it prior to the birthday libertarian. She had some dizziness/wooziness. She had a mild headache and felt a little anxious. She did not ever have any chest pain and she did not feel short of breath. Once the palpitations started she knew that she was back in atrial fibrillation. In the emergency room she was noted to be in atrial fibrillation with a rapid ventricular response. Her heart rate did slow down with the diltiazem but she did not convert. We did attempt a cardioversion which was successful but only for a few seconds before she returned atrial fibrillation. A second attempt at cardioversion was unsuccessful. She was given a bolus dose of IV diltiazem followed by a continuous infusion of intravenous diltiazem. By the following morning she was noted to have good rate control, but remained in atrial fibrillation. Her dose of metoprolol was increased from 12.5 mg twice daily to 25 mg twice daily. She was transitioned to oral diltiazem CD 240 mg daily. Over the next 24 hours rate control remained good and within desired range. Amlodipine was discontinued during hospitalization because of the addition of diltiazem. She will remain on anticoagulation with Eliquis. She will be discharged home with increased dose of metoprolol as well as the diltiazem CD 240 mg daily. Activity will be as tolerated and she will resume her usual diet. Follow-up appointment will be scheduled with her primary care provider within 1 week. Cardiology EP consult will be scheduled for review and management of her atrial fibrillation. - Patient Instructions Diet: Usual Diet as Tolerated Activity: As Tolerated Other/Special Instructions: Please schedule appointment with primary care provider within 1 week. Please schedule EP cardiology consult concerning atrial fibrillation with rapid ventricular response. - Discharge Plan *PRESCRIPTION DRUG MONITORING PROGRAM REVIEWED*: Not Applicable *COPY OF PRESCRIPTION DRUG MONITORING REPORT IN PATIENT YVETTE: Not Applicable Prescriptions/Med Rec: dilTIAZem HCl [Diltiazem 24Hr Cd] 240 mg PO DAILY #30 cap.er.24h Metoprolol Tartrate [Lopressor] 25 mg PO BID #60 tablet Home Medications: Home Meds Apixaban [Eliquis] 5 mg PO BID 06/29/19 [History] Multivitamin [Multi-Day Vitamins] 1 each PO DAILY 06/29/19 [History] atorvaSTATin [Lipitor] 40 mg PO DAILY 06/29/19 [History] Aspirin [Halfprin] 81 mg PO DAILY 09/09/19 [History] Metoprolol Tartrate [Lopressor] 25 mg PO BID #60 tablet 09/11/19 [Rx] dilTIAZem HCl [Diltiazem 24Hr Cd] 240 mg PO DAILY #30 cap.er.24h 09/11/19 [Rx] Patient Handouts: Diltiazem extended-release capsules or tablets, Atrial Fibrillation, [id number] Referrals: Osmany Bermeo MD [Physician] - 09/18/19 1:40 pm (Please arrive 15 minutes to register for your appointment.) - Discharge Summary/Plan Comment DC Time >30 min.: No - Patient Data Vitals - Most Recent: Last Vital Signs Temp 97 F 09/11/19 08:00 Pulse 88 09/11/19 08:10 Resp 12 09/11/19 09:48 BP 122/71 09/11/19 09:48 Pulse Ox 96 09/11/19 09:48 Weight - Most Recent: 212 lb 0.015 oz I&O - Last 24 hours: Intake & Output 09/10/19 09/11/19 09/11/19 22:59 06:59 14:59 Intake Total 860 Balance 860 Med Orders - Current: Current Medications Acetaminophen (Tylenol) 650 mg PO Q4H PRN PRN Reason: Pain (Mild 1-3)/fever Apixaban (Eliquis) 5 mg PO BID [facility] Last Admin: 09/11/19 08:11 Dose: 5 mg Aspirin (Halfprin) 81 mg PO DAILY [facility] Last Admin: 09/11/19 08:10 Dose: 81 mg Atorvastatin Calcium (Lipitor) 40 mg PO DAILY [facility] Last Admin: 09/11/19 08:11 Dose: 40 mg Diltiazem HCl (Cardizem Cd) 240 mg PO DAILY [facility] Last Admin: 09/11/19 08:10 Dose: 240 mg Lorazepam (Ativan) 0.5 mg IVPUSH Q4H PRN PRN Reason: Nausea/Vomiting Magnesium Hydroxide (Milk Of Magnesia) 30 ml PO Q12H PRN PRN Reason: Constipation Melatonin (Melatonin) 9 mg PO BEDTIME PRN PRN Reason: Sleep Metoprolol Tartrate (Lopressor) 25 mg PO BID [facility] Last Admin: 09/11/19 08:10 Dose: 25 mg Ondansetron HCl (Zofran Odt) 4 mg PO Q6H PRN PRN Reason: Nausea able to take PO Ondansetron HCl (Zofran) 4 mg IV Q6H PRN PRN Reason: Nausea/Vomiting Senna/Docusate Sodium (Senna Plus) 1 tab PO BID PRN PRN Reason: Constipation Discontinued Medications Diltiazem HCl (Diltiazem) 20 mg IVPUSH ONETIME ONE Stop: 09/09/19 17:54 Last Admin: 09/09/19 17:59 Dose: 20 mg Diltiazem HCl (Diltiazem) 20 mg IVPUSH ONETIME ONE Stop: 09/09/19 18:39 Last Admin: 09/09/19 18:43 Dose: 20 mg Diltiazem HCl 100 mg/ Sodium (Chloride) 100 mls @ 5 mls/hr IV TITRATE [facility]; Protocol Last Admin: 09/10/19 05:40 Dose: 10 mg/hr, 10 mls/hr Sodium Chloride (Normal Saline) 1,000 mls @ 50 mls/hr IV ASDIRECTED [facility] Last Admin: 09/10/19 03:00 Dose: 50 mls/hr Sodium Chloride (Normal Saline) 1,000 mls @ 999 mls/hr IV .BOLUS ONE Stop: 09/09/19 21:36 Last Admin: 09/09/19 21:30 Dose: 999 mls/hr Propofol (Diprivan 20 Ml) 100 mg IVPUSH ONETIME ONE Stop: 09/09/19 19:12 Last Admin: 09/09/19 19:46 Dose: 100 mg - Exam General: Reports: Alert, Oriented, Cooperative Lungs: Reports: Clear to Auscultation, Normal Respiratory Effort Cardiovascular: Reports: Regular Rate, No Murmurs, Irregular Rhythm GI/Abdominal Exam: Soft, Non-Tender, No Organomegaly, No Distention Extremities: Non-Tender, No Pedal Edema
== END 2019-09-11 11:08 | disposition home or self-care (01) | DRG 310 ==
LOC: JP.ED 17:12 → JP.ICU 19:39
PROVIDERS: ADMIT Internal Medicine; ATTEND Internal Medicine
PROC: 5A2204Z Restoration of Cardiac Rhythm, Single (ICD-10-PCS; principal; 2019-09-09)
DX: I48.91 Unspecified atrial fibrillation (principal); I48.0 Paroxysmal atrial fibrillation; H54.7 Unspecified visual loss; E78.00 Pure hypercholesterolemia, unspecified; I10 Essential (primary) hypertension; Z86.73 Personal history of transient ischemic attack (TIA), and cerebral infarction without residual deficits; Z98.890 Other specified postprocedural states; Z99.81 Dependence on supplemental oxygen; Z79.01 Long term (current) use of anticoagulants; Z79.82 Long term (current) use of aspirin; Z79.899 Other long term (current) drug therapy
CPT/HCPCS: 36415; 92960; 93005; 93010; 96374; 96376; 99284; 99285; J3490 ×2; 80053; 80061; 83735; 84439; 84443; 85025; A9270-GY; J2704; J7030; J7050

== ENCOUNTER 2019-09-19 12:58 | Emergency (ER) | payer MEDICARE, MEDICAID ==
--- NOTE | 2019-09-19 14:01 | EDM.PDOC ---
ED HPI GENERAL MEDICAL PROBLEM - General Chief Complaint: Cardiovascular Problem Stated Complaint: BRADYCARDIA, 40'S Time Seen by Provider: 09/19/19 13:15 Source of Information: Reports: Patient History Limitations: Reports: No Limitations - History of Present Illness INITIAL COMMENTS - FREE TEXT/NARRATIVE: 64-year-old female presents to the emergency room with concerns about persistent bradycardia, mild lightheaded when standing. She has been having symptoms since she spontaneously converted from atrial fibrillation to normal sinus rhythm several days ago. She was hospitalized with persistent A. fib last week, discharged on 240 mg of Cardizem and 25 mg of metoprolol twice daily. She spontaneously converted 2 days after being discharged. No shortness of breath or chest pain. Duration: Day(s): (3 to 4 days of symptoms) Associated Symptoms: Denies: Chest Pain, Cough, Malaise, Shortness of Breath, Weakness - Related Data Allergies Allergy/AdvReac Type Severity Reaction Status Date / Time No Known Allergies Allergy Verified 09/19/19 13:25 Home Meds: Home Meds Apixaban [Eliquis] 5 mg PO BID 06/29/19 [History] Multivitamin [Multi-Day Vitamins] 1 each PO DAILY 06/29/19 [History] atorvaSTATin [Lipitor] 40 mg PO DAILY 06/29/19 [History] Aspirin [Halfprin] 81 mg PO DAILY 09/09/19 [History] Metoprolol Tartrate [Lopressor] 25 mg PO BID #60 tablet 09/11/19 [Rx] dilTIAZem HCl [Diltiazem 24Hr Cd] 240 mg PO DAILY #30 cap.er.24h 09/11/19 [Rx] Past Medical History HEENT History: Reports: Impaired Vision Cardiovascular History: Reports: Afib, High Cholesterol, Hypertension Other Cardiovascular History: cardioversion [employer] History: Reports: Musculoskeletal History: Reports: Fracture Neurological History: Reports: CVA Other Neuro History: May 2019 cva - Infectious Disease History Infectious Disease History: Reports: Chicken Pox, Measles, Mumps - Past Surgical History HEENT Surgical History: Reports: Eye Surgery GI Surgical History: Reports: Hernia, Abdominal, Hernia Repair/Other Other Female Surgeries/Procedures: has a bladder sling Musculoskeletal Surgical History: Reports: Other (See Below) Other Musculoskeletal Surgeries/Procedures:: surgery for a broken knee Social & Family History - Family History Family Medical History: Noncontributory - Tobacco Use Smoking Status *Q: Never Smoker - Caffeine Use Caffeine Use: Reports: Tea Other Caffeine Use: off tea now - Recreational Drug Use Recreational Drug Use: No ED ROS GENERAL - Review of Systems Review Of Systems: See Below Constitutional: Denies: Fever, Chills HEENT: Denies: Vision Change Respiratory: Denies: Shortness of Breath Cardiovascular: Reports: Lightheadedness. Denies: Chest Pain, Palpitations GI/Abdominal: Denies: Nausea, Vomiting Skin: Reports: No Symptoms Neurological: Denies: Headache ED EXAM, GENERAL - Physical Exam Exam: See Below Exam Limited By: No Limitations General Appearance: Alert, No Apparent Distress Head: Atraumatic Neck: Normal Inspection Respiratory/Chest: Lungs Clear Cardiovascular: Regular Rate, Rhythm, Bradycardia. No: Extra Beats Extremities: Normal Inspection. No: Pedal Edema Neurological: Alert, Oriented Psychiatric: Normal Affect, Normal Mood Course - Vital Signs Last Recorded V/S: Last Vital Signs Temp 97.3 F 09/19/19 13:18 Pulse 48 L 09/19/19 13:18 Resp 16 09/19/19 13:18 BP 172/62 H 09/19/19 13:18 Pulse Ox 97 09/19/19 13:18 - Re-Assessments/Exams Free Text/Narrative Re-Assessment/Exam: 09/19/19 14:57 Patient was kept on cardiac monitoring for 1/2-hour and consistently had a sinus rhythm rate 40-50. After discussing her situation with the hospitalist service, and the patient, her Cardizem will be reduced to 125 mg daily until her cardiology consultation in early September. She can return after several days if not improving satisfactorily. Departure - Departure Time of Disposition: 14:09 Disposition: Home, Self-Care 01 Clinical Impression: Bradycardia Instructions: Bradycardia, Adult Referrals: PCP,None [Primary Care Provider] - Forms: ED Department Discharge Care Plan Goals: Take new dose of diltiazem for the next 2 weeks until your cardiology consultation. Recheck if not improving satisfactorily after several days. Activity as tolerated. Sepsis Event Note - Evaluation Sepsis Screening Result: No Definite Risk - Focused Exam Vital Signs: Vital Signs Temp Pulse Resp BP Pulse Ox 09/19/19 13:18 97.3 F 48 L 16 172/62 H 97 Date Exam was Performed: 09/19/19 Time Exam was Performed: 14:58
== END 2019-09-19 14:12 | disposition home or self-care (01) ==
LOC: JP.ED 12:58
DX: R00.1 Bradycardia, unspecified (principal); I10 Essential (primary) hypertension; E78.00 Pure hypercholesterolemia, unspecified; I48.91 Unspecified atrial fibrillation; Z86.73 Personal history of transient ischemic attack (TIA), and cerebral infarction without residual deficits; Z79.899 Other long term (current) drug therapy; Z79.82 Long term (current) use of aspirin; Z79.01 Long term (current) use of anticoagulants
CPT/HCPCS: 99283

== ENCOUNTER 2019-10-24 21:46 | Emergency (ER) | payer MEDICARE, BC ==
--- NOTE | 2019-10-24 22:32 | EDM.PDOC ---
ED HPI GENERAL MEDICAL PROBLEM - General Chief Complaint: Cardiovascular Problem Stated Complaint: IRREGULAR HEARTBEAT Time Seen by Provider: 10/24/19 22:23 Source of Information: Reports: Patient, Old Records, RN Notes Reviewed History Limitations: Reports: No Limitations - History of Present Illness INITIAL COMMENTS - FREE TEXT/NARRATIVE: 64-year-old female presents emergency department a complaint of palpitations, she has a elation has been admitted to the hospital recently has underwent cardioversion as well as is adjustment of her medications. The cardioversion was unsuccessful electrical. Admitted to hospital did have improvement with Cardizem discharge from the hospital with increasing Cardizem and then became bradycardic medication had to be reduced she states is been doing okay but today she started feeling palpitations, and on observation by triage nurse noted to be 150 and will swing anywhere down to 90 back to 150 depending on what activity she is doing. With the elevated heart rate she feels the palpitations does feel short of breath, no chest pain no nausea vomiting no diaphoresis - Related Data Allergies Allergy/AdvReac Type Severity Reaction Status Date / Time No Known Allergies Allergy Verified 10/24/19 22:42 Home Meds: Home Meds Apixaban [Eliquis] 5 mg PO BID 06/29/19 [History] Multivitamin [Multi-Day Vitamins] 1 each PO DAILY 06/29/19 [History] atorvaSTATin [Lipitor] 40 mg PO DAILY 06/29/19 [History] Aspirin [Halfprin] 81 mg PO DAILY 09/09/19 [History] Metoprolol Tartrate [Lopressor] 25 mg PO BID #60 tablet 09/11/19 [Rx] Diltiazem [Cardizem CD] 120 mg PO DAILY 10/24/19 [History] dilTIAZem HCL [Cardizem Cd] 180 mg PO DAILY #30 cap.er.24h 10/25/19 [Rx] Past Medical History HEENT History: Reports: Impaired Vision Cardiovascular History: Reports: Afib, High Cholesterol, Hypertension Other Cardiovascular History: cardioversion SCHOOL YEAR [employer]AN[employer] History: Reports: Musculoskeletal History: Reports: Fracture Neurological History: Reports: CVA Other Neuro History: May 2019 cva - Infectious Disease History Infectious Disease History: Reports: Chicken Pox, Measles, Mumps - Past Surgical History HEENT Surgical History: Reports: Eye Surgery GI Surgical History: Reports: Hernia, Abdominal, Hernia Repair/Other Other Female Surgeries/Procedures: has a bladder sling Musculoskeletal Surgical History: Reports: Other (See Below) Other Musculoskeletal Surgeries/Procedures:: surgery for a broken knee Social & Family History - Family History Family Medical History: Noncontributory - Tobacco Use Smoking Status *Q: Never Smoker - Caffeine Use Caffeine Use: Reports: None Other Caffeine Use: off tea now - Recreational Drug Use Recreational Drug Use: No ED ROS GENERAL - Review of Systems Review Of Systems: See Below Constitutional: Reports: No Symptoms Respiratory: Reports: Shortness of Breath (With increased palpitations) Cardiovascular: Reports: Palpitations GI/Abdominal: Reports: No Symptoms ED EXAM, GENERAL - Physical Exam Exam: See Below Exam Limited By: No Limitations General Appearance: Alert, WD/WN, No Apparent Distress Respiratory/Chest: No Respiratory Distress, Lungs Clear, Normal Breath Sounds, No Accessory Muscle Use, Chest Non-Tender Cardiovascular: No Murmur, Tachycardia Course - Vital Signs Last Recorded V/S: Last Vital Signs Temp 97.5 F 10/24/19 22:13 Pulse 73 10/24/19 22:53 Resp 20 10/25/19 00:08 BP 121/58 L 10/25/19 00:08 Pulse Ox 94 L 10/24/19 22:13 - Orders/Labs/Meds Orders: Active Orders 24 hr Category Date Time Status Cardiac Monitoring [RC] .As Directed Care 10/24/19 22:29 Active EKG Documentation Completion [RC] ASDIRECTED Care 10/24/19 22:30 Active EKG 12 Lead [EK] Stat Ther 10/24/19 22:29 Ordered Labs: Laboratory Tests 10/24/19 10/24/19 Range/Units 22:20 22:20 WBC 10.1 (4.5-11.0) K/uL RBC 4.97 (3.30-5.50) M/uL Hgb 14.1 (12.0-15.0) g/dL Hct 42.1 (36.0-48.0) % MCV 85 (80-98) fL MCH 28 (27-31) pg MCHC 34 (32-36) % Plt Count 246 (150-400) K/uL Neut % (Auto) 55 (36-66) % Lymph % (Auto) 31 (24-44) % H[place] % (Auto) 10 H (2-6) % Eos % (Auto) 4 (2-4) % Baso % (Auto) 1 (0-1) % Sodium 141 (140-148) mmol/L Potassium 3.7 (3.6-5.2) mmol/L Chloride 105 (100-108) mmol/L Carbon Dioxide 26 (21-32) mmol/L Anion Gap 10.0 (5.0-14.0) mmol/L BUN 23 H D (7-18) mg/dL Creatinine 0.8 (0.6-1.0) mg/dL Est Cr Clr Drug Dosing 63.09 mL/min Estimated GFR (MDRD) > 60 (>60) Glucose 130 H (74-106) mg/dL Calcium 8.7 (8.5-10.1) mg/dL Troponin I < 0.017 (0.000-0.056) ng/mL Meds: Medications Discontinued Medications Generic Name Dose Route Start Last Admin Trade Name Freq PRN Reason Stop Dose Admin Diltiazem HCl 15 mg 10/24/19 23:04 10/24/19 23:09 Cardizem PO 10/24/19 23:05 15 mg ONETIME ONE Administration Departure - Departure Time of Disposition: 00:12 Disposition: Home, Self-Care 01 Condition: Fair Clinical Impression: Atrial fibrillation with RVR Prescriptions: dilTIAZem HCL [Cardizem Cd] 180 mg PO DAILY #30 cap.er.24h Instructions: Atrial Fibrillation Referrals: Osmany Bermeo MD [Primary Care Provider] - Forms: ED Department Discharge Additional Instructions: Start the Cardizem CD 180 mg once a day tomorrow this medication has been faxed to [facility], please follow-up with your primary care in the next 3 to 5 days for reevaluation, call or return to the emergency department worsening of symptoms Sepsis Event Note - Evaluation Sepsis Screening Result: No Definite Risk - Focused Exam Vital Signs: Vital Signs Temp Pulse Resp BP Pulse Ox 10/25/19 00:08 20 121/58 L 10/24/19 23:34 21 H 126/66 10/24/19 22:53 73 22 H 145/83 H 10/24/19 22:13 97.5 F 92 16 136/83 94 L 10/24/19 22:01 97.5 F 92 16 136/83 94 L Date Exam was Performed: 10/25/19 Time Exam was Performed: 00:10 - My Orders Last 24 Hours: My Active Orders 10/24/19 22:29 Cardiac Monitoring [RC] .As Directed EKG 12 Lead [EK] Stat 10/24/19 22:30 EKG Documentation Completion [RC] ASDIRECTED - Assessment/Plan Last 24 Hours: My Active Orders 10/24/19 22:29 Cardiac Monitoring [RC] .As Directed EKG 12 Lead [EK] Stat 10/24/19 22:30 EKG Documentation Completion [RC] ASDIRECTED Plan: Assessment Acuity = acute Site and laterality = atrial fibrillation Etiology = unknown Manifestations = palpitations Location of injury = Home Lab values = CBC, BMP, troponin within normal limits EKG demonstrates atrial fibrillation rate of 106 Plan Gave her 15 mg short acting her rate did come down into the 80s but she still would bounce up into the 120s but she felt better felt she was able to sleep. Plan is working to increase her Cardizem 180 mg long-acting prescription faxed to [facility] she will start that tomorrow This note was dictated using [email or web address] voice recognition software please call with any questions on syntax or grammar.
[2019-10-24] MEDS ORDERED: Diltiazem IR 30 MG Tab PO ONE (23:04)
== END 2019-10-25 00:27 | disposition home or self-care (01) ==
LOC: JP.ED 21:46
DX: I48.91 Unspecified atrial fibrillation (principal); Z79.82 Long term (current) use of aspirin; Z70.1 Counseling related to patient's sexual behavior and orientation; Z79.899 Other long term (current) drug therapy; E78.00 Pure hypercholesterolemia, unspecified; I10 Essential (primary) hypertension; Z86.73 Personal history of transient ischemic attack (TIA), and cerebral infarction without residual deficits
CPT/HCPCS: 36415; 80048; 84484; 85025; 93005; 99283; 99285; A9270; 93010

== ENCOUNTER 2021-02-23 05:38 | Emergency (ER) | payer MEDICARE, BC ==
--- NOTE | 2021-02-23 05:52 | EDM.PDOC ---
ED HPI GENERAL MEDICAL PROBLEM - General Chief Complaint: Genitourinary Problem Stated Complaint: BLADDER INFECTION Time Seen by Provider: 02/23/21 05:45 Source of Information: Reports: Patient History Limitations: Reports: No Limitations - History of Present Illness INITIAL COMMENTS - FREE TEXT/NARRATIVE: Carol is a 65-year-old female presenting to the ED for evaluation of possible UTI. She reports that she started having urgency, frequency, and dysuria last night. This morning she started having hematuria. She denies any fever, chills, nausea or vomiting, change in appetite, cough or shortness of breath. She has had no loss of taste or smell. She denies any back pain. She does have a history of UTIs in the past. - Related Data Allergies Allergy/AdvReac Type Severity Reaction Status Date / Time No Known Allergies Allergy Verified 02/23/21 05:46 Home Meds: Home Meds Apixaban [Eliquis] 5 mg PO BID 06/29/19 [History] Multivitamin [Multi-Day Vitamins] 1 each PO DAILY 06/29/19 [History] atorvaSTATin [Lipitor] 40 mg PO DAILY 06/29/19 [History] Aspirin [Halfprin] 81 mg PO DAILY 09/09/19 [History] Metoprolol Tartrate [Lopressor] 25 mg PO BID #60 tablet 09/11/19 [Rx] lisinopriL [Lisinopril] 20 mg PO DAILY 02/02/21 [History] Past Medical History HEENT History: Reports: Impaired Vision Cardiovascular History: Reports: Afib, High Cholesterol, Hypertension Other Cardiovascular History: cardioversion 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: Musculoskeletal History: Reports: Fracture Neurological History: Reports: CVA Other Neuro History: May 2019 cva - Infectious Disease History Infectious Disease History: Reports: Chicken Pox, Measles, Mumps - Past Surgical History HEENT Surgical History: Reports: Eye Surgery GI Surgical History: Reports: Hernia, Abdominal, Hernia Repair/Other Other Female Surgeries/Procedures: has a bladder sling Musculoskeletal Surgical History: Reports: Other (See Below) Other Musculoskeletal Surgeries/Procedures:: surgery for a broken knee Social & Family History - Family History Family Medical History: No Pertinent Family History - Caffeine Use Caffeine Use: Reports: None Other Caffeine Use: off tea now ED ROS GENERAL - Review of Systems Review Of Systems: See Below Constitutional: Reports: No Symptoms HEENT: Reports: No Symptoms Respiratory: Reports: No Symptoms Cardiovascular: Reports: Blood Pressure Problem (Patient's blood pressure is elevated today but she has not taken her medications yet this morning) Endocrine: Reports: No Symptoms GI/Abdominal: Reports: No Symptoms : Reports: Dysuria, Frequency, Hematuria, Urgency Musculoskeletal: Reports: No Symptoms Skin: Reports: No Symptoms Neurological: Reports: No Symptoms Psychiatric: Reports: No Symptoms Hematologic/Lymphatic: Reports: No Symptoms Immunologic: Reports: No Symptoms ED EXAM, RENAL/ - Physical Exam Exam: See Below Exam Limited By: No Limitations General Appearance: Alert, No Apparent Distress Eye Exam: Bilateral Eye: PERRL Throat/Mouth: Normal Inspection, Normal Oropharynx, Normal Voice, No Airway Compromise Head: Atraumatic, Normocephalic Respiratory/Chest: No Respiratory Distress, Lungs Clear, Normal Breath Sounds Cardiovascular: Normal Peripheral Pulses, Regular Rate, Rhythm, No Murmur GI/Abdominal: Normal Bowel Sounds, Soft, Non-Tender Back Exam: No: CVA Tenderness (R), CVA Tenderness (L) Neurological: Alert, Oriented, Normal Cognition, No Motor/Sensory Deficits Psychiatric: Normal Affect, Normal Mood Skin Exam: Warm, Dry, Intact, Normal Color Course - Vital Signs Last Recorded V/S: Last Vital Signs Temp 36.3 C 02/23/21 05:51 Pulse 59 L 02/23/21 06:02 Resp 16 02/23/21 06:02 BP 152/60 H 02/23/21 06:02 Pulse Ox 95 02/23/21 06:02 - Orders/Labs/Meds Labs: Laboratory Tests 02/23/21 Range/Units 06:01 Urine Color Red A (YELLOW) Urine Appearance Turbid A (CLEAR) Urine pH 6.5 (5.0-8.0) Ur Specific Glenn 1.025 (1.008-1.030) Urine Protein >=300 H (NEGATIVE) mg/dL Urine Glucose (UA) Negative (NEGATIVE) mg/dL Urine Ketones Negative (NEGATIVE) mg/dL Urine Occult Blood Large H (NEGATIVE) Urine Nitrite Negative (NEGATIVE) Urine Bilirubin Negative (NEGATIVE) Urine Urobilinogen 0.2 (0.2-1.0) EU/dL Ur Leukocyte Esterase Trace H (NEGATIVE) Urine RBC Packed H (0-5) Urine WBC 5-10 H (0-5) Ur Epithelial Cells Not seen Amorphous Sediment Not seen Urine Bacteria Moderate Urine Mucus Not seen Urine Other See note - Re-Assessments/Exams Free Text/Narrative Re-Assessment/Exam: 02/23/21 06:19 urinalysis is positive for leukocyte Estrace but there are packed field of red cells per high field view and 5-10 white cells. This is likely an acute cystitis so we will start her on antibiotic cephalexin 500 mg 3 times a day for 5 days. Departure - Departure Time of Disposition: 06:20 Disposition: Home, Self-Care 01 Clinical Impression: UTI, Urinary tract infectious disease - Discharge Information Instructions: Urinary Tract Infection, Adult, [id number] Referrals: PCP,None [Primary Care Provider] - Forms: ED Department Discharge Care Plan Goals: Found to have acute cystitis indicating likely a bladder infection. We are going to start an antibiotic called cephalexin. Please take 1 capsule 3 times a day for the next 5 days which should clear your infection. Please make sure to drink plenty of fluids. Please return to the ED or clinic if worsening symptoms on the antibiotics. Sepsis Event Note (ED) - Focused Exam Vital Signs: Vital Signs Temp Pulse Resp BP Pulse Ox 02/23/21 06:02 59 L 16 152/60 H 95 02/23/21 05:51 36.3 C 59 L 14 203/101 H 94 L - Problem List & Annotations (1) UTI, Urinary tract infectious disease SNOMED Code(s): 38135257 Code(s): N39.0 - URINARY TRACT INFECTION, SITE NOT SPECIFIED Status: Acute Priority: Low Current Visit: Yes - Problem List Review Problem List Initiated/Reviewed/Updated: Yes
== END 2021-02-23 06:26 | disposition home or self-care (01) ==
LOC: JP.ED 05:38
DX: N39.0 Urinary tract infection, site not specified (principal); I48.91 Unspecified atrial fibrillation; E78.00 Pure hypercholesterolemia, unspecified; I10 Essential (primary) hypertension; Z79.01 Long term (current) use of anticoagulants; Z79.82 Long term (current) use of aspirin; Z79.899 Other long term (current) drug therapy; Z86.73 Personal history of transient ischemic attack (TIA), and cerebral infarction without residual deficits
CPT/HCPCS: 81001; 99283

== ENCOUNTER 2023-04-05 06:44 | Day surgery (SDC) | payer MEDICARE, BC ==
[2023-04-05] MEDS ORDERED: Propofol 200 MG/20 ML SDV ONE (07:10)
[2023-04-05] MEDS ORDERED: Midazolam 1 MG/ML 2 ML SDV ONE (07:10)
[2023-04-05] MEDS ORDERED: fentaNYL 50 MCG/ML SDV ONE (07:11)
[2023-04-05] MEDS ORDERED: Dextrose 5%-Lactated Ringers 1,000 ML IV SCH (07:15)
== END 2023-04-05 10:17 | disposition home or self-care (01) ==
LOC: JP.SDS 06:44
PROVIDERS: ATTEND Surgery
DX: Z12.11 Encounter for screening for malignant neoplasm of colon (principal); K64.9 Unspecified hemorrhoids; I10 Essential (primary) hypertension; I48.91 Unspecified atrial fibrillation; E78.00 Pure hypercholesterolemia, unspecified; E66.01 Morbid (severe) obesity due to excess calories; Z86.73 Personal history of transient ischemic attack (TIA), and cerebral infarction without residual deficits; Z80.0 Family history of malignant neoplasm of digestive organs; Z68.33 Body mass index [BMI] 33.0-33.9, adult
CPT/HCPCS: G0121; J2250; J2704; J3010; J7121

== ENCOUNTER 2023-04-15 11:33 | Emergency (ER) | payer MEDICARE, BC ==
[2023-04-15] MEDS ORDERED: Sodium Chloride 0.9% 10 ML Syringe FLUSH PRN (12:00)
[2023-04-15 12:15] LABS: BASOPHILS ABSOLUTE AUTO 0.04 K/uL (0.00-0.10); BASOPHILS PERCENT AUTO 0.5 % (0.1-1.3); EOSINOPHILS ABSOLUTE AUTO 0.16 K/uL (0.00-0.40); EOSINOPHILS PERCENT AUTO 2.1 % (0.0-5.4); HEMATOCRIT 39.1 % (34.3-46.0); HEMOGLOBIN 13.9 g/dL (11.2-15.5); IMMATURE GRAN PERCENT AUTO 0.1 % (0.0-0.7); LYMPHOCYTES ABSOLUTE AUTO 2.24 K/uL (0.8-3.3); LYMPHOCYTES PERCENT AUTO 29.7 % (11.4-47.7); MEAN CORPUSCULAR HEMOGLOBIN 29.9 pg (31.6-35.5); MEAN CORPUSCULAR HGB CONC 35.5 g/dL (31.6-35.5); MEAN CORPUSCULAR VOLUME 84.1 fL (81.4-99.0); MONOCYTES ABSOLUTE AUTO 0.76 K/uL (0.20-0.90); MONOCYTES PERCENT AUTO 10.1 % (3.3-12.6); NEUTROPHILS ABSOLUTE AUTO 4.32 K/uL (1.0-7.6); NEUTROPHILS PERCENT AUTO 57.5 % (40.0-78.1); PLATELET COUNT,PLT 245 K/uL (130-375); RED BLOOD CELL COUNT 4.65 M/uL (3.77-5.24); WHITE BLOOD CELL COUNT,WBC 7.5 K/uL (3.2-11.0)
[2023-04-15] MEDS ORDERED: Sodium Chloride 0.9% 1,000 ML IV SCH (12:15)
[2023-04-15 12:19] LABS: IMMATURE GRAN ABSOLUTE AUTO 0.01 K/uL (0.00-0.23)
[2023-04-15 12:44] LABS: CALCIUM 8.8 mg/dL (8.5-10.1); CREATININE 0.6 mg/dL (0.6-1.0); EST CRCL DRUG DOSING (CG) 80.75 mL/min; POTASSIUM,K 4.1 mmol/L (3.6-5.2); TSH ULTRASENSITIVE 3.038 uIU/mL (0.358-3.740)
[2023-04-15 12:48] LABS: ANION GAP 9.1 mmol/L (5.0-14.0)
[2023-04-15] MEDS ORDERED: Propofol 200 MG/20 ML SDV ONE (13:27)
== END 2023-04-15 14:04 | disposition home or self-care (01) ==
LOC: JP.ED 11:33
DX: I48.20 Chronic atrial fibrillation, unspecified (principal); I10 Essential (primary) hypertension; Z79.01 Long term (current) use of anticoagulants
CPT/HCPCS: 36415; 80048; 83735; 84443; 84484; 85025; 92960; 93005; 93010; 96360; 99284; 99285; J2704; J3490; J7030

== ENCOUNTER 2024-12-28 19:56 | Emergency (ER) | payer MEDICARE, BC ==
[2024-12-28 21:35] LABS: APPEARANCE,URINE SLIGHTLY CLOUDY (CLEAR); EPITHELIAL CELLS,URINE FEW; GLUCOSE,URINE NEGATIVE (NEGATIVE); OCCULT BLOOD,URINE LARGE (NEGATIVE)
== END 2024-12-28 22:15 | disposition home or self-care (01) ==
LOC: JP.ED 19:56
DX: N39.0 Urinary tract infection, site not specified (principal); I48.91 Unspecified atrial fibrillation; E78.00 Pure hypercholesterolemia, unspecified; I10 Essential (primary) hypertension; Z86.73 Personal history of transient ischemic attack (TIA), and cerebral infarction without residual deficits; Z79.01 Long term (current) use of anticoagulants; Z79.82 Long term (current) use of aspirin; Z79.899 Other long term (current) drug therapy
CPT/HCPCS: 81001; 99283